=== PATIENT | female | born 1975 | race American Indian/Alaskan Native ===

== ENCOUNTER 2019-04-14 10:01 | Inpatient (IN) | payer MEDICAID ==
[2019-04-08 14:17] LABS: Basophils # (Auto) 0.1 K/mm3 (0.0-0.1); Basophils % (Auto) 1.3 % (0.0-1.8); Eosinophils # (Auto) 0.2 K/mm3 (0.0-0.4); Eosinophils % (Auto) 1.7 % (0.0-4.3); Hematocrit 34.4 % (30.3-42.9); Hemoglobin 11.3 gm/dl (10.1-14.3); Lymphocytes # (Auto) 2.6 K/mm3 (1.2-5.4); Lymphocytes % (Auto) 26.7 % (13.4-35.0); Mean Corpuscular HGB Conc 33 % (30-34); Mean Corpuscular Volume 89 fl (79-97); Monocytes # (Auto) 0.8 K/mm3 (0.0-0.8); Monocytes % (Auto) 8.7 % (0.0-7.3); Platelet Count 317 K/mm3 (140-440); Red Blood Count 3.87 M/mm3 (3.65-5.03); Red Cell Distribution Width 15.8 % (13.2-15.2)
--- NOTE | 2019-04-09 10:39 | Anesthesia Consultation ---
Anesthesia Consult and Med Hx Date of service: 04/09/19 - Airway Anesthetic Teeth Evaluation: Good ROM Head & Neck: Adequate Mental/Hyoid Distance: Adequate Mallampati Class: Class II Intubation Access Assessment: Possibly Difficult - Pulmonary Exam CTA: Yes - Cardiac Exam Cardiac Exam: RRR - Pre-Operative Health Status ASA Pre-Surgery Classification: ASA3 Proposed Anesthetic Plan: General Nerve Block: TAP Block - Pulmonary Hx Smoking: Yes (STARTED AT AGE 18; QUIT 2007) Hx Asthma: Yes (albuterol prn; last use 2 days ago) SOB: No Hx Sleep Apnea: No (SLEEP STUDY NEG) - Cardiovascular System Hx Hypertension: No Hx Heart Attack/AMI: No Hx Percutaneous Transluminal Coronary Angioplasty (PTCA): No Hx Cardia Arrhythmia: No - Central Nervous System Hx Seizures: No CVA: No Hx Psychiatric Problems: Yes - Gastrointestinal Hx Gastroesophageal Reflux Disease: No - Endocrine Hx Renal Disease: No Hx Liver Disease: No Hx Insulin Dependent Diabetes: No Hx Non-Insulin Dependent Diabetes: No Hx Thyroid Disease: No - Hematic Hx Anemia: Yes - Other Systems Hx Alcohol Use: No Hx Obesity: Yes (BMI 56) - Additional Comments Anesthesia Medical History Comments: No prior GA. No FHx anesthetic complications.
[~2019-04-14 10:01] MED LIST: LACTATED RINGERS 1,000 ML IV SCH; NEURONTIN PO NR; PROVENTIL IH NR; VERSED IV NR
--- NOTE | 2019-04-14 10:39 | Anesthesia Day of Surgery ---
Anesthesia Day of Surgery - Day of Surgery Patient Examined: Yes Patient H&P Reviewed: Yes Patient is NPO: Yes
[2019-04-14] MEDS ORDERED: TYLENOL PO ONE (11:39)
--- NOTE | 2019-04-14 12:10 | History and Physical Report ---
History of Present Illness Date of examination: 04/14/19 Date of admission: 04/14/19 10:01 Chief complaint: Prolonged heavy vaginal bleeding History of present illness: Pt is a 43yo BF LMP 03/15/19 presents for surgical evaluation and treatment of uterine fibroids. She complains of prolonged heavy vaginal bleeding. Pelvic u/s showed an enlarged uterus with multiple fibroids. She desires an Abdominal myomectomy. Past History Past Medical History: no pertinent history [employer] History: fibroids Social history: no significant social history, single Medications and Allergies Allergies Allergy/AdvReac Type Severity Reaction Status Date / Time No Known Allergies Allergy Verified 04/07/19 18:21 Home Medications Medication Instructions Recorded Confirmed Last Taken Type Diclofenac 1% [Diclofenac 1% 1 applic TP QID PRN 04/07/19 04/14/19 04/13/19 09:00 History topical gel] Ergocalciferol [Vitamin D2] 1 cap PO QWEEK 04/07/19 04/14/19 04/09/19 09:00 History Levalbuterol Tartrate [Xopenex Hfa] 2 puff IH Q4H PRN 04/07/19 04/14/19 04/13/19 09:00 History Triamcinolone 0.1% [Kenalog 0.1% 1 applic TP TID 04/07/19 04/14/19 04/13/19 09:00 History OINT] oxyCODONE /ACETAMINOPHEN [Percocet 1 tab PO Q6H PRN #30 tablet 04/16/19 Unknown Rx 5/325 mg] traMADol [Ultram 50 MG tab] 50 mg PO Q6HR PRN #30 tablet 04/16/19 Unknown Rx Active Meds: Active Medications Albuterol (Proventil) 2.5 mg IH PREOP NR Stop: 04/14/19 23:59 Celecoxib (Celebrex) 200 mg PO PREOP NR Stop: 04/14/19 23:59 Fentanyl (Sublimaze) 100 mcg IV ONCE PRN PRN Reason: sedation for nerve block Stop: 04/14/19 23:59 Gabapentin (Neurontin) 300 mg PO PREOP NR Stop: 04/14/19 23:59 Last Admin: 04/14/19 11:40 Dose: 300 mg Documented by: Lactated Ringer's (Lactated Ringers) 1,000 mls @ 100 mls/hr IV DIRECT TEDDY Midazolam HCl (Versed) 2 mg IV PREOP NR Stop: 04/14/19 23:59 Review of Systems All systems: negative - Vital Signs Vital signs: Vital Signs Temp Pulse Resp BP Pulse Ox 97.0 F L 72 18 141/83 98 04/08/19 13:52 04/08/19 13:52 04/08/19 13:52 04/08/19 13:52 04/08/19 13:52 Temp Pulse Resp BP Pulse Ox 97.0 F L 72 16 141/83 98 04/08/19 13:52 04/08/19 13:52 04/14/19 11:40 04/08/19 13:52 04/08/19 13:52 - Physical Exam Breasts: Positive: deferred Cardiovascular: Regular rate Lungs: Positive: Clear to auscultation Abdomen: Positive: normal appearance Genitourinary (Female): Positive: normal external genitalia Uterus: Positive: enlarged Extremities: Positive: normal Results Result Diagrams: 04/15/19 07:52 All other labs normal. Ultrasound: report reviewed Assessment and Plan - Patient Problems (1) Uterine fibroid Onset Date: 04/14/19 Current Visit: Yes Status: Resolved Qualifiers: Uterine leiomyoma location: intramural and subserous Qualified Code(s): D25.1 - Intramural leiomyoma of uterus; D25.2 - Subserosal leiomyoma of uterus Plan to address problem: A: Symptomatic uterine fibroids Menorrhagia P: Admit for an Abdominal myomectomy (2) Menorrhagia with irregular cycle Onset Date: 04/14/19 Current Visit: Yes Status: Resolved
[2019-04-14] MEDS: SUBLIMAZE IV PRN ×2 (12:30→13:06)
[2019-04-14] MEDS ORDERED: ANCEF/STERILE WATER 2 GM/20 ML 2 GM/20 ML SYRINGE IV NR (13:00)
[2019-04-14] MEDS ORDERED: MARCAINE-EPI 0.25%-1:200,000 INFILTRATI ONE (13:15)
[2019-04-14] MEDS ORDERED: XYLOCAINE 1% 20 mL ONE (13:18)
[2019-04-14] MEDS ORDERED: ACD-A 500 ML IV ONE (14:28)
[2019-04-14] MEDS ORDERED: METHYLENE BLUE ONE (14:28)
[2019-04-14] MEDS ORDERED: NACL 0.9% 100 ML ONE (14:29)
[2019-04-14] MEDS ORDERED: Vasostrict ONE (14:29)
[2019-04-14] MEDS ORDERED: DIPRIVAN 10 MG/ML IV ONE (14:40)
[2019-04-14] MEDS ORDERED: XYLOCAINE MPF 2% ONE (14:41)
[2019-04-14] MEDS ORDERED: SUBLIMAZE ONE (14:42)
[2019-04-14] MEDS ORDERED: ZEMURON IV ONE (15:20)
[2019-04-14] MEDS ORDERED: DILAUDID ONE ×3 (15:20→16:39)
[2019-04-14] MEDS ORDERED: DECADRON ONE (15:41)
[2019-04-14] MEDS ORDERED: ZOFRAN ONE (15:41)
[2019-04-14] MEDS ORDERED: NARCAN 0.4 MG/1 ML IV PRN (16:04)
[2019-04-14] MEDS ORDERED: MILK OF MAGNESIA PO PRN (16:04)
[2019-04-14] MEDS ORDERED: ZOFRAN IV PRN ×2 (16:04→16:44)
[2019-04-14] MEDS ORDERED: ROBINUL ONE (16:10)
[2019-04-14] MEDS ORDERED: BLOXIVERZ ONE (16:10)
--- NOTE | 2019-04-14 16:29 | Operative Report ---
Operative Report Operative Report: Date of procedure: 04/14/2019 Pre-operative diagnosis: 1. Symptomatic uterine fibroids 2. Menometrorrhagia Post-operative diagnosis: Same with left ovarian cyst Procedure name(s): 1. Abdominal myomectomy 2. Left ovarian cystectomy Surgeon: Eben Thomas MD Debit Agent: ESDRAS Spears Anesthesia: TAWNY block followed by Gen. endotracheal intubation EBL: 60 mL's Findings: A 12 week size myomatous uterus with normal tubes and ovaries bilaterally. A cystic left ovary. Procedure: After the patient was correctly identified, she was prepped and draped in usual sterile fashion and placed in the lithotomy position. First the skin knife used to make a transverse skin incision which is nicked in the midline and extended laterally using the Bovie cautery. The rectus muscles were dissected off the rectus fascia both superiorly and inferiorly, the rectus bellies in the midline and the peritoneum was entered under direct visualization. Exploration of the pelvic organs found the uterus to be enlarged with small fibroids. The fallopian tubes and ovaries normal bilaterally. The left ovary was cystic. Next the bowels packed back, and the anterior serosa was infiltrated using Pitressin solution. An anterior incision was made through which 5 small fibroids were removed and sent to pathology. The endometrial cavity was entered, and thus she will need a section for delivery should she get . After all the fibroids are removed, the myometrium was re-approximated using 2-0 Monocryl suture in 2 layers, the second layer imbricating the first. Copious amounts of irrigation was then performed, and excellent hemostasis was assured. The Tisseel Sealant was sprayed across the serosal layer. The uterus was returned to his normal anatomical position, and the rectus muscles and peritoneum was re-approximated using several sutures of interrupted 0 Vicryl suture. The fascia was re-approximated using 0 Vicryl suture in a running locking fashion. The subcutaneous layer was made hemostatic using Bovie cautery and re-approximated using 2-0 Monocryl suture and the skin edges re-approximated using 4-0 Vicryl suture in a sub-cuticular fashion. The patient tolerated the procedure well and was transferred to recovery room in stable condition.
[2019-04-14] MEDS: DILAUDID IV PRN ×4 (16:38→17:09)
--- NOTE | 2019-04-14 17:30 | Post Anesthesia Evaluation ---
- Post Anesthesia Evaluation Patient Participated: Yes Airway Patent: Yes Stable Respiratory Function: Yes Nausea/Vomiting: No Temp > 96.8F: Yes Pain Manageable: Yes Adequeate Hydration: Yes Anesthesia Complications: No
[2019-04-14] MEDS: TORADOL IV SCH (18:09)
[2019-04-14] MEDS: D5LR 1,000 ML IV SCH (18:20)
[2019-04-14] MEDS: MORPHINE IV PRN (21:00)
[2019-04-14] MEDS: ANCEF/NS 1 GM/50 ML 1 GM/50 ML BAG IV SCH (22:43)
[2019-04-14] MEDS: COLACE PO SCH (22:44)
[2019-04-14] MEDS: PERCOCET 5/325 PO PRN (22:50)
[2019-04-15] MEDS: TORADOL IV SCH ×4 (00:54→16:21)
[2019-04-15] MEDS: D5LR 1,000 ML IV SCH (01:55)
[2019-04-15] MEDS: MORPHINE IV PRN ×4 (02:17→16:21)
[2019-04-15] MEDS: ANCEF/NS 1 GM/50 ML 1 GM/50 ML BAG IV SCH (06:01)
[2019-04-15] MEDS: PERCOCET 5/325 PO PRN ×2 (08:06→19:48)
[2019-04-15 08:25] LABS: Hematocrit 32.3 % (30.3-42.9); Hemoglobin 10.8 gm/dl (10.1-14.3)
--- NOTE | 2019-04-15 09:37 | Progress Note ---
Assessment and Plan - Patient Problems (1) Uterine fibroid Onset Date: 04/14/19 Current Visit: Yes Status: Resolved Qualifiers: Uterine leiomyoma location: intramural and subserous Qualified Code(s): D25.1 - Intramural leiomyoma of uterus; D25.2 - Subserosal leiomyoma of uterus (2) Menorrhagia with irregular cycle Onset Date: 04/14/19 Current Visit: Yes Status: Resolved (3) Status post myomectomy Onset Date: 04/15/19 Current Visit: Yes Status: Resolved Plan to address problem: A: S/P Abdominal myomectomy - POD #1 Doing well Asymptomatic anemia - stable P: Continue RPOC Anticipate discharge in 24-48hrs Subjective - Subjective Date of service: 04/15/19 Principal diagnosis: s/p Myomectomy - POD #1 Interval history: Pt is s/p an Abdominal myomectomy, and feeling well. She is tolerating a liquid diet without nausea or vomiting, ambulating and voiding without difficulty. Patient reports: appetite normal, voiding normally, pain well controlled, flatus, ambulating normally, no dizzy ambulation, no nauseated Objective - Vital Signs Latest vital signs: Vital Signs Temp Pulse Resp BP BP Pulse Ox 04/15/19 08:15 97.4 F L 70 20 131/80 93 04/15/19 04:55 98.1 F 71 20 130/71 97 04/15/19 00:10 98.2 F 69 20 122/72 95 04/14/19 21:35 99 04/14/19 21:26 99 04/14/19 20:50 98.2 F 85 20 123/69 99 04/14/19 17:41 98.1 F 72 18 141/81 98 04/14/19 17:15 72 14 150/84 99 04/14/19 17:00 97.2 F L 75 14 150/81 96 04/14/19 16:45 78 14 150/84 100 04/14/19 16:40 81 16 148/79 100 04/14/19 16:35 88 16 140/77 100 04/14/19 16:28 97.3 F L 91 H 16 139/84 99 04/14/19 13:45 91 H 20 112/64 100 04/14/19 13:43 93 H 23 99/38 99 04/14/19 13:30 95 H 21 112/57 100 04/14/19 13:27 94 H 21 110/68 100 04/14/19 13:25 90 19 118/71 99 04/14/19 13:22 87 20 121/70 100 04/14/19 13:16 91 H 20 101/55 100 04/14/19 13:06 20 04/14/19 12:40 20 04/14/19 12:30 20 04/14/19 11:40 16 04/14/19 11:00 97.8 F 92 H 20 136/82 98 04/14/19 10:25 97.8 F 92 H 20 136/82 98 Intake and Output 04/14/19 04/15/19 04/15/19 22:59 06:59 14:59 Intake Total 250 990.833 120 Output Total 70 300 800 Balance 180 690.833 -680 Intake: IV 250 870.833 ANCEF/NS 1 GM/50 ML 1 gm 50 In 50 ml @ 100 mls/hr IV Q8H TEDDY Rx#:[id number] D5lr 1,000 ml @ 125 mls/ 820.833 hr IV DIRECT TEDDY Rx#: [id number] Oral 120 120 Output: Urine 70 300 800 Indwelling Catheter 300 800 Other: Total, Intake Amount 120 120 Total, Output Amount 300 800 Voiding Method Indwelling Catheter Weight 149.924 kg - Exam Breasts: Present: deferred Abdomen: Present: normal appearance, soft Uterus: Present: normal Extremities: Present: normal Incision: Present: normal, dry, intact - Labs Labs: Laboratory Tests 04/08/19 04/08/19 04/14/19 13:55 13:55 11:05 WBC 9.8 RBC 3.87 Hgb 11.3 Hct 34.4 MCV 89 MCH 29 MCHC 33 RDW 15.8 H Plt Count 317 Lymph % (Auto) 26.7 [place] % (Auto) 8.7 H Eos % (Auto) 1.7 Baso % (Auto) 1.3 Lymph # 2.6 [place] # 0.8 Eos # 0.2 Baso # 0.1 Seg Neutrophils % 61.6 Seg Neutrophils # 6.0 HCG, Qual Negative Blood Type O POSITIVE Antibody Screen Negative 04/15/19 07:52 WBC RBC Hgb 10.8 Hct 32.3 MCV MCH MCHC RDW Plt Count Lymph % (Auto) [place] % (Auto) Eos % (Auto) Baso % (Auto) Lymph # [place] # Eos # Baso # Seg Neutrophils % Seg Neutrophils # HCG, Qual Blood Type Antibody Screen
[2019-04-15] MEDS: PROVENTIL IH SCH ×5 (10:14→21:13)
[2019-04-15] MEDS: COLACE PO SCH ×2 (10:20→23:16)
[2019-04-15] MEDS ORDERED: AMBIEN PO PRN (12:08)
[2019-04-15] MEDS: NORCO 5/325 PO PRN (23:16)
[2019-04-16] MEDS: NORCO 5/325 PO PRN (07:59)
[2019-04-16] MEDS ORDERED: PROVENTIL IH SCH ×2 (08:00)
[2019-04-16] MEDS: COLACE PO SCH (08:01)
[2019-04-16 08:48] VITALS: BP 96/46
--- NOTE | 2019-04-16 09:27 | Progress Note ---
Assessment and Plan - Patient Problems (1) Uterine fibroid Onset Date: 04/14/19 Current Visit: Yes Status: Resolved Qualifiers: Uterine leiomyoma location: intramural and subserous Qualified Code(s): D25.1 - Intramural leiomyoma of uterus; D25.2 - Subserosal leiomyoma of uterus (2) Menorrhagia with irregular cycle Onset Date: 04/14/19 Current Visit: Yes Status: Resolved (3) Status post myomectomy Onset Date: 04/15/19 Current Visit: Yes Status: Resolved Plan to address problem: A: S/P Abdominal myomectomy - POD #2 Doing well Asymptomatic anemia - stable P: May go home today. Subjective - Subjective Date of service: 04/16/19 Principal diagnosis: s/p Myomectomy - POD #2 Interval history: Pt is s/p an Abdominal myomectomy, and feeling well. She is tolerating a reg diet without nausea or vomiting, ambulating and voiding without difficulty. Patient reports: appetite normal, voiding normally, pain well controlled, flatus, ambulating normally, no dizzy ambulation, no bowel movement, no nauseated Objective - Vital Signs Latest vital signs: Vital Signs Temp Pulse Pulse Resp Resp BP BP 04/16/19 07:49 97.7 F 82 20 96/46 04/16/19 04:50 97.8 F 79 20 107/49 04/16/19 00:22 97.8 F 89 20 114/67 04/15/19 22:28 04/15/19 21:34 04/15/19 21:15 78 16 04/15/19 20:45 98.0 F 89 20 110/69 04/15/19 16:06 97.9 F 76 18 131/60 04/15/19 15:16 82 14 04/15/19 15:06 79 16 04/15/19 12:06 97.5 F L 85 20 108/53 04/15/19 10:30 96 H 14 04/15/19 10:28 04/15/19 10:25 94 H 16 Pulse Ox 04/16/19 07:49 97 04/16/19 04:50 95 04/16/19 00:22 93 04/15/19 22:28 99 04/15/19 21:34 100 04/15/19 21:15 04/15/19 20:45 98 04/15/19 16:06 97 04/15/19 15:16 04/15/19 15:06 04/15/19 12:06 95 04/15/19 10:30 04/15/19 10:28 99 04/15/19 10:25 Intake and Output 04/15/19 04/16/19 04/16/19 22:59 06:59 14:59 Intake Total 360 120 Output Total 250 Balance 110 120 Intake: Oral 120 Intake, Free Water 360 Output: Urine 250 Void 250 Other: Total, Intake Amount 120 Total, Output Amount 250 Voiding Method Toilet # Voids Void 1 1 - Exam Abdomen: Present: normal appearance, soft Uterus: Present: normal Incision: Present: normal, dry, intact
--- NOTE | 2019-04-16 10:16 | Discharge Summary ---
Providers - Providers Date of Admission: 04/14/19 10:01 Date of discharge: 04/16/19 Attending physician: PHIL CHEEMA [facility] Reason for admission: other (Symptomatic uterine fibroids; Menorrhagia) Procedure: other (Abdominal myomectomy; Left ovarian cystectomy) Laceration: none Incision: normal, dry, intact Other procedures: none complications: none Discharge diagnosis: other (s/p Abdominal myomectomy) Hospital course: Pt is a 43yo BF LMP 03/15/19 who presented for surgical evaluation and treatment of uterine fibroids. She complained of prolonged heavy vaginal bleeding, and pelvic u/s showed an enlarged uterus with multiple fibroids. She underwent an uncomplicated Abdominal myomectomy, and by POD #2 she was tolerating a reg diet without nausea or vomiting, ambulating and voiding without difficulty. She was therefore discharged to home on POD #2 in stable condition. Condition at discharge: Good Disposition: DC-01 TO HOME OR SELFCARE - Discharge Diagnoses (1) Uterine fibroid Status: Resolved Qualifiers: Uterine leiomyoma location: intramural and subserous Qualified Code(s): D25.1 - Intramural leiomyoma of uterus; D25.2 - Subserosal leiomyoma of uterus (2) Menorrhagia with irregular cycle Status: Resolved (3) Status post myomectomy Status: Resolved Plan - Discharge Medications Prescriptions: oxyCODONE /ACETAMINOPHEN [Percocet 5/325 mg] 1 tab PO Q6H PRN #30 tablet PRN Reason: Pain, Moderate (4-6) traMADol [Ultram 50 MG tab] 50 mg PO Q6HR PRN #30 tablet PRN Reason: Pain - Provider Discharge Summary Activity: routine, no sex for 6 weeks, no heavy lifting 4 weeks, no strenuous exercise Diet: routine Instructions: routine Additional instructions: [] Smoking cessation referral if applicable(refer to patient education folder for contact #) [] Refer to [facility] Booklet Call your doctor immediately for: * Fever > 100.5 * Heavy vaginal bleeding ( >1 pad per hour) * Severe persistent headache * Shortness of breath * Reddened, hot, painful area to leg or breast * Drainage or odor from incision. * Keep incision clean and dry at all times and follow doctor's instructions regarding bathing/showering - Follow up plan Follow up: ADEEL SEPULVEDA MD [Primary Care Provider] - 7 Days PHIL CHEEMA MD [Staff Physician] - 7 Days
== END 2019-04-16 14:39 | disposition home or self-care (01) | DRG 742 ==
LOC: 3A 10:01 → OB 17:19
PROVIDERS: ADMIT Obstetrics & Gynecology; ATTEND Obstetrics & Gynecology
PROC: 0UB90ZZ Excision of Uterus, Open Approach (ICD-10-PCS; principal; 2019-04-14)
PROC: 0UB10ZZ Excision of Left Ovary, Open Approach (ICD-10-PCS; 2019-04-14)
DX: D25.2 Subserosal leiomyoma of uterus (principal); Z68.43 Body mass index [BMI] 50.0-59.9, adult; N92.1 Excessive and frequent menstruation with irregular cycle; D25.1 Intramural leiomyoma of uterus; E66.9 Obesity, unspecified; N83.202 Unspecified ovarian cyst, left side; J45.909 Unspecified asthma, uncomplicated; D64.9 Anemia, unspecified; Z87.891 Personal history of nicotine dependence; Z79.51 Long term (current) use of inhaled steroids
CPT/HCPCS: 36415; 64450; 84703; 85014; 85018; 85025; 86850; 86900; 86901; 88305; 94640; G0378; C1765; C9250; J0690; J1100; J1170; J1885; J2250; J2270; J2405; J2704; J2710; J3010; J7120; J7121; Q9968

== ENCOUNTER 2019-06-08 10:04 | Outpatient (CLI) | payer MEDICAID ==
--- NOTE | 2019-06-11 07:14 | Pulmonary Function Test ---
SPIROMETRY REPORT PROCEDURE: Spirometry. RESULTS: Forced vital capacity is 2.7 L or 92% predicted. Forced expiratory volume in 1, second is 2.16 L or 89% of predicted. FEV1/FVC ratio is 79. INTERPRETATION: Normal spirometry. JOB# [id number] SONIA/NTS
== END 2019-06-08 10:05 | disposition home or self-care (01) ==
LOC: PF 10:04
PROVIDERS: ATTEND Surgery
DX: E66.2 Morbid (severe) obesity with alveolar hypoventilation (principal); J45.909 Unspecified asthma, uncomplicated
CPT/HCPCS: 94010

== ENCOUNTER 2019-08-10 15:24 | Emergency (ER) | payer MEDICAID ==
--- NOTE | 2019-08-10 17:00 | Event Note ---
ED Screening Note Date of service: 08/10/19 Time: 16:56 ED Screening Note: This is a 43 y.o. F. that presents to the ER with vaginal bleeding and 8/9 weeks . LMP 06/10/2019, A8 (2 miscarriages, 6 abortions) Dr. Thomas office sent patient here for follow up. She reports noticing clots in the toilet today and heavy bleeding. This initial assessment/diagnostic orders/clinical plan/treatment(s) is/are subject to change based on patients health status, clinical progression and re- assessment by fellow clinical providers in the ED. Further treatment and workup at subsequent clinical providers discretion. Patient/guardian urged not to elope from the ED as their condition may be serious if not clinically assessed and managed. Initial orders include: Labs and OB US
[2019-08-10 17:48] LABS: Basophils # (Auto) 0.2 K/mm3 (0.0-0.1); Basophils % (Auto) 1.2 % (0.0-1.8); Eosinophils # (Auto) 0.1 K/mm3 (0.0-0.4); Eosinophils % (Auto) 1.1 % (0.0-4.3); Hematocrit 35.4 % (30.3-42.9); Hemoglobin 11.4 gm/dl (10.1-14.3); Mean Corpuscular HGB Conc 32 % (30-34); Mean Corpuscular Volume 89 fl (79-97); Monocytes # (Auto) 1.1 K/mm3 (0.0-0.8); Monocytes % (Auto) 9.1 % (0.0-7.3); Platelet Count 350 K/mm3 (140-440); Red Blood Count 3.96 M/mm3 (3.65-5.03); Red Cell Distribution Width 17.6 % (13.2-15.2)
[2019-08-10 18:01] LABS: Bilirubin,Urine NEG (Negative); Blood,Urine SM (Negative); Color,Urine Yellow (Yellow); Mucus,Urine 1+ /HPF; Protein,Urine <15 mg/dL mg/dL (Negative)
--- NOTE | 2019-08-10 19:33 | Ultrasound Report ---
US OB <= 14 weeks fetus, US OB transvaginal INDICATION / CLINICAL INFORMATION: preg, bleeding. COMPARISON: None available. FINDINGS: Transabdominal and transvaginal imaging were performed. Intrauterine gestational sac measures 1.3 cm, corresponding to a gestational age of 6 weeks 1 day. Ho wever, there is no evidence of pole or yolk sac. Left ovary is normal. Right ovary contains a 2.3 cm cyst. No free fluid. IMPRESSION: 1. Intrauterine gestational sac but no evidence of intrauterine or extrauterine . Signer Name: Hitesh Perkins MD Signed: 08/10/2019 7:28 PM Workstation Name: [id number]
--- NOTE | 2019-08-10 20:47 | Emergency Department Report ---
ED Female HPI - General Chief complaint: Vaginal Bleeding Stated complaint: /HEAVY BLEEDING Time Seen by Provider: 08/10/19 16:56 Source: patient Mode of arrival: Ambulatory Limitations: No Limitations - History of Present Illness Initial comments: Patient is a A [id number] Afro-Swiss female who is approximately 6 weeks gestation and who presented to the ED today with acute onset persistent vaginal bleeding which initially was light but in the last 2 days has had some clots and associated worsened. Patient denies abdominal pain, nausea, vomiting, dizziness, headache, chest pain, shortness of breath, dysuria, urinary frequency and urgency, change in vision, fever and chills, low back pain or diarrhea. MD Complaint: vaginal bleeding -: Gradual, week(s) (2) Location: other (vaginal) Radiation: non-radiating Severity: moderate Severity scale (0 -10): 2 Quality: dull Consistency: intermittent Improves with: none Worsens with: none Are you Now?: Yes (6 weeks) Associated Symptoms: denies other symptoms, vaginal bleeding. denies: vaginal discharge, abdominal pain, nausea/vomiting, fever/chills, headaches, loss of appetite, dysuria, seizure, shortness of breath, weakness - Related Data Sexually active: Yes : 16 Para: 7 A: 9 Home Medications Medication Instructions Recorded Confirmed Last Taken Diclofenac 1% [Diclofenac 1% 1 applic TP QID PRN 04/07/19 08/10/19 08/06/19 topical gel] Ergocalciferol [Vitamin D2] 1 cap PO QWEEK 04/07/19 08/10/19 08/09/19 Levalbuterol Tartrate [Xopenex Hfa] 2 puff IH Q4H PRN 04/07/19 08/10/19 08/09/19 Triamcinolone 0.1% [Kenalog 0.1% 1 applic TP TID 04/07/19 08/10/19 08/06/19 OINT] Allergies Allergy/AdvReac Type Severity Reaction Status Date / Time No Known Allergies Allergy Verified 04/07/19 18:21 ED Review of Systems ROS: Stated complaint: /HEAVY BLEEDING Other details as noted in HPI Constitutional: denies: chills, fever Eyes: denies: eye pain, eye discharge, vision change ENT: denies: ear pain, throat pain Respiratory: denies: cough, shortness of breath, wheezing Cardiovascular: denies: chest pain, palpitations Endocrine: no symptoms reported Gastrointestinal: denies: abdominal pain, nausea, diarrhea Genitourinary: other (vaginal bleeding). denies: urgency, dysuria, discharge Musculoskeletal: denies: back pain, joint swelling, arthralgia Skin: denies: rash, lesions Neurological: denies: headache, weakness, paresthesias Psychiatric: denies: anxiety, depression Hematological/Lymphatic: denies: easy bleeding, easy bruising ED Past Medical Hx - Past Medical History Previous Medical History?: Yes Hx Hypertension: No Hx Heart Attack/AMI: No Hx Liver Disease: No Hx Renal Disease: No Hx Arthritis: Yes (KNEES) Hx Seizures: No Hx Asthma: Yes (albuterol prn; last use 2 days ago) Hx HIV: No - Surgical History Past Surgical History?: No - Social History Smoking Status: Never Smoker Substance Use Type: None - Medications Home Medications: Home Medications Medication Instructions Recorded Confirmed Last Taken Type Diclofenac 1% [Diclofenac 1% 1 applic TP QID PRN 04/07/19 08/10/19 08/06/19 History topical gel] Ergocalciferol [Vitamin D2] 1 cap PO QWEEK 04/07/19 08/10/19 08/09/19 History Levalbuterol Tartrate [Xopenex Hfa] 2 puff IH Q4H PRN 04/07/19 08/10/19 08/09/19 History Triamcinolone 0.1% [Kenalog 0.1% 1 applic TP TID 04/07/19 08/10/19 08/06/19 History OINT] ED Physical Exam - General Limitations: No Limitations General appearance: alert, in no apparent distress - Head Head exam: Present: atraumatic, normocephalic, normal inspection - Eye Eye exam: Present: normal appearance, PERRL, EOMI Pupils: Present: normal accommodation - ENT ENT exam: Present: normal exam, normal orophraynx, mucous membranes moist, TM's normal bilaterally, normal external ear exam - Neck Neck exam: Present: normal inspection, full ROM. Absent: tenderness - Respiratory Respiratory exam: Present: normal lung sounds bilaterally. Absent: respiratory distress, wheezes, rales, rhonchi, chest wall tenderness, decreased breath sounds, prolonged expiratory - Cardiovascular Cardiovascular Exam: Present: regular rate, normal rhythm, normal heart sounds. Absent: systolic murmur, diastolic murmur, rubs, gallop - GI/Abdominal GI/Abdominal exam: Present: soft, normal bowel sounds. Absent: tenderness, guarding, rebound, hyperactive bowel sounds, hypoactive bowel sounds - Bi-manual exam: Present: other (pelvic exam deferred, patient preference) - Extremities Exam Extremities exam: Present: normal inspection, full ROM, normal capillary refill - Back Exam Back exam: Present: normal inspection, full ROM. Absent: muscle spasm, paraspinal tenderness - Neurological Exam Neurological exam: Present: alert, oriented X3, CN II-XII intact, normal gait, reflexes normal - Psychiatric Psychiatric exam: Present: normal affect, normal mood - Skin Skin exam: Present: warm, dry, intact, normal color. Absent: rash ED Course Vital Signs 08/10/19 16:58 Temperature 98.1 F Pulse Rate 84 Respiratory 18 Rate Blood Pressure 150/81 O2 Sat by Pulse 100 Oximetry - Reevaluation(s) Reevaluation #1: 08/10/19 20:47 This is a 43-year-old [id number] -Swiss female who is approximately 6 weeks gestation who presented to the ED with acute onset persistent vaginal bleeding which initially was light but in the last 2 days has gotten worse with multiple blood clots. In the ED, patient is alert and oriented 3 and is not in distress. Lab test results were reviewed and shows hCG Quant of 2144, acute leukocytosis of 12,400. The rest of the lab test results are nonactionable. The transvaginal ultrasound shows intrauterine gestational sac measures 1.3 cm, corresponding to a gestational age of 6 weeks 1 day. However, there is no evidence of pole or yolk sac. Patient was advised to maintain a complete pelvic rest and to follow-up with the CLAIM EXAMINER physician in 2- 3 days for reevaluation. Patient was advised to return to the ED immediately if symptoms get worse. ED Medical Decision Making - Lab Data Result diagrams: 08/10/19 17:18 - Radiology Data Radiology results: report reviewed, image reviewed Findings [facility] [address] [place] [address] Ultrasound Report Signed Patient: SAMM BRANNON MR#: [id number] : 1975 Acct:[id number] Age/Sex: 43 / F ADM Date: 08/10/19 Loc: ED Attending Dr: Ordering Physician: LARRY GRAFF Date of Service: 08/10/19 Procedure(s): US OB transvaginal Accession Number(s): [id number] cc: LARRY GRAFF US OB <= 14 weeks fetus, US OB transvaginal INDICATION / CLINICAL INFORMATION: preg, bleeding. COMPARISON: None available. FINDINGS: Transabdominal and transvaginal imaging were performed. Intrauterine gestational sac measures 1.3 cm, corresponding to a gestational age of 6 weeks 1 day. However, there is no evidence of pole or yolk sac. Left ovary is normal. Right ovary contains a 2.3 cm cyst. No free fluid. IMPRESSION: 1. Intrauterine gestational sac but no evidence of intrauterine or extrauterine . Signer Name: Hitesh Perkins MD Signed: 08/10/2019 7:28 PM Workstation Name: [id number] Transcribed By: TM Dictated By: Hitesh Perkins MD Electronically Authenticated By: Hitesh Perkins MD Signed Date/Time: 08/10/191927 DD/ 24 TD/TT: - Medical Decision Making This is a 43-year-old [id number] -Swiss female who is approximately 6 weeks gestation who presented to the ED with acute onset persistent vaginal bleeding which initially was light but in the last 2 days has gotten worse with multiple blood clots. In the ED, patient is alert and oriented 3 and is not in distress. Lab test results were reviewed and shows hCG Quant of 2144, acute leukocytosis of 12,400. The rest of the lab test results are nonactionable. T he transvaginal ultrasound shows intrauterine gestational sac measures 1.3 cm, corresponding to a gestational age of 6 weeks 1 day. However, there is no evidence of pole or yolk sac. Patient was advised to maintain a complete pelvic rest and to follow-up with the CLAIM EXAMINER physician in 2- 3 days for reevaluation. Patient was advised to return to the ED immediately if symptoms get worse. - Differential Diagnosis Threatened miscarriage; Vaginal bleeding in ; Acute UTI Critical care attestation.: If time is entered above; I have spent that time in minutes in the direct care of this critically ill patient, excluding procedure time. ED Disposition Clinical Impression: Threatened miscarriage in early Disposition: TO HOME OR SELFCARE Is pt being admited?: No Does the pt Need Aspirin: No Condition: Stable Instructions: Threatened Miscarriage (ED) Additional Instructions: Please maintain a complete pelvic rest, and follow-up with the CLAIM EXAMINER physician in 2-3 days for reevaluation. Return to the ED immediately if symptoms get worse. Referrals: PHIL CHEEMA MD [Primary Care Provider] - 3-5 Days Time of Disposition: 20:52 Print Language: LAO
[2019-08-10 22:37] VITALS: BP 104/54
== END 2019-08-10 22:37 | disposition home or self-care (01) ==
LOC: ED 15:24
DX: O20.0 Threatened abortion (principal); M19.90 Unspecified osteoarthritis, unspecified site; Z79.899 Other long term (current) drug therapy
CPT/HCPCS: 36415; 76801; 76817; 81001; 84702; 84703; 85025; 86900; 86901

== ENCOUNTER 2019-08-24 05:49 | Day surgery (SDC) | payer MEDICAID ==
[~2019-08-24 05:49] MED LIST changes: -NEURONTIN PO NR; -PROVENTIL IH NR; -VERSED IV NR
[2019-08-24] MEDS ORDERED: MIDAZOLAM 2 MG/2 ML INJ IV NR ×2 (06:00→08:00)
[2019-08-24] MEDS ORDERED: PROPOFOL 200 MG/20 ML VIAL IV ONE (07:29)
[2019-08-24] MEDS ORDERED: LIDOCAINE MPF (2%) 20 MG/1 ML VIAL 5 ML ONE (07:29)
[2019-08-24] MEDS ORDERED: PHENYLEPHRINE/NS 1,000 MCG/10 ML SYRINGE (OR USE) IV ONE (07:29)
[2019-08-24] MEDS ORDERED: GLYCOPYRROLATE 0.4 MG/2 ML INJ ONE (07:29)
[2019-08-24] MEDS ORDERED: dexAMETHasone 20 MG/5 ML VIAL ONE (07:29)
[2019-08-24] MEDS ORDERED: ONDANSETRON 4 MG/2 ML INJ ONE (07:29)
[2019-08-24] MEDS ORDERED: fentaNYL 100 MCG/2 ML INJ ONE (07:29)
[2019-08-24] MEDS ORDERED: SILVER NITRATE APPLICATOR 1 EA TP ONE (07:30)
--- NOTE | 2019-08-24 07:30 | Anesthesia Day of Surgery ---
Anesthesia Day of Surgery - Day of Surgery Patient Examined: Yes Patient H&P Reviewed: Yes Patient is NPO: Yes
--- NOTE | 2019-08-24 07:30 | Anesthesia Consultation ---
Anesthesia Consult and Med Hx Date of service: 08/24/19 - Airway Anesthetic Teeth Evaluation: Good ROM Head & Neck: Adequate Mental/Hyoid Distance: Adequate Mallampati Class: Class II Intubation Access Assessment: Probably Good - Pre-Operative Health Status ASA Pre-Surgery Classification: ASA3 Proposed Anesthetic Plan: General - Pulmonary Hx Smoking: Yes (smoked for 15 years, quit 08') Hx Asthma: Yes (albuterol prn; last use this AM) Hx Sleep Apnea: No (SLEEP STUDY NEG) - Cardiovascular System Hx Cardia Arrhythmia: No - Central Nervous System Hx Psychiatric Problems: Yes - Gastrointestinal Hx Gastroesophageal Reflux Disease: No - Endocrine Hx Insulin Dependent Diabetes: No Hx Non-Insulin Dependent Diabetes: No Hx Thyroid Disease: No - Other Systems Hx Obesity: Yes (BMI 58.3)
[2019-08-24] MEDS ORDERED: METHYLERGONOVINE MALEATE 0.2 MG/ML VIAL IM ONE (07:31)
[2019-08-24] MEDS ORDERED: FAMOTIDINE 20 MG/2 ML INJ IV NR (08:00)
--- NOTE | 2019-08-24 08:41 | Short Stay Summary ---
Short Stay Documentation Date of service: 08/24/19 Narrative H&P: Pt is a 43yo BF LMP 06/10/19 presents for surgical evaluation and treatment of an Incomplete . She had a Blighted ovum and passed tissue last week, but continued bleeding, and pelvic u/s showed retained POC. She now presents for a D&C. - History Principal diagnosis: Blighted ovum H&P: obtained from office Past Medical History: No medical history Past Surgical History: Other (myomectomy) Social history: no significant social history, single - Allergies and Medications Current Medications: Allergies No Known Allergies Allergy (Verified 08/20/19 16:43) Home Medications Medication Instructions Recorded Confirmed Last Taken Type Albuterol Sulfate [Proventil Hfa] 2 puff IH Q6H PRN 08/20/19 08/20/19 08/23/19 13:00 History Ascorbic Acid [Vitamin C] 1,000 mg PO DAILY 08/20/19 08/20/19 08/23/19 13:00 History Cholecalciferol (Vitamin D3) 50,000 unit PO QWEEK 08/20/19 08/20/19 08/23/19 13:00 History [Vitamin D3 50,000UNIT CAP] Active Medications Famotidine (Pepcid) 20 mg IV PREOP NR Stop: 08/24/19 16:00 Fentanyl (Sublimaze) 50 mcg IV Q5MIN PRN PRN Reason: Pain , Severe (7-10) Stop: 08/24/19 17:00 Lactated Ringer's (Lactated Ringers) 1,000 mls @ 100 mls/hr IV DIRECT TEDDY Midazolam HCl (Versed) 2 mg IV PREOP NR Stop: 08/24/19 23:59 - Physical exam General appearance: no acute distress Integumentary: no rash HEENT: Atraumatic Lungs: Clear to auscultation Breasts: deferred Heart: Regular rate Gastrointestinal: normal Female Genitourinary: deferred Rectal Exam: deferred Extremities: no ischemia, No edema Neurological: Normal gait, Normal speech - Brief post op/procedure progress note Date of procedure: 08/24/19 Pre-op diagnosis: 1. Blighted ovum 2. Incomplete Post-op diagnosis: same Procedure: D&C Anesthesia: MAC Findings: A 10-12 weeks size uterus with scant amounts of POC Surgeon: PHIL CHEEMA Estimated blood loss: 50-100ml Pathology: list (POC) Specimen disposition: to lab Condition: stable - Hospital course Hospital course: Unremarkable. - Disposition Condition at discharge: Good Disposition: TO HOME OR SELFCARE - Discharge Diagnoses (1) Blighted ovum Status: Resolved (2) Incomplete Status: Resolved Short Stay Discharge Plan Activity: no restrictions Diet: regular Follow up with: DR LESTER [Other] - 7 Days PHIL CHEEMA MD [Staff Physician] - 14 Days Prescriptions: Methylergonovine [Methergine] 0.2 mg PO Q8HR #6 tablet Ibuprofen [Motrin] 800 mg PO Q8HR PRN #30 tablet PRN Reason: Pain, Mild (1-3) DOXYCYCLINE Hyclate [Vibramycin] 100 mg PO Q12HR #14 capsule
[2019-08-24] MEDS ORDERED: ALBUTEROL 2.5 MG/3 ML NEBU IH ONE ×2 (09:00→09:53)
[2019-08-24] MEDS ORDERED: ceFAZolin/Water 2 GM/20 ML 2 GM/20 ML SYRINGE IV NR (09:00)
[2019-08-24] MEDS ORDERED: MIDAZOLAM 2 MG/2 ML INJ ONE (09:03)
[2019-08-24] MEDS ORDERED: SUCCINYLCHOLINE CHLORIDE 200 MG/10 ML INJ MDV ONE (09:19)
--- NOTE | 2019-08-24 09:36 | Operative Report ---
Operative Report Operative Report: Operative Report: PREOPERATIVE DIAGNOSIS: 1. Blighted ovum 2. Incomplete POSTOPERATIVE DIAGNOSIS: Same OPERATIVE PROCEDURE: 1. Dilatation and curettage. SURGEON: Eben Thomas MD ANESTHESIA: Gen. MAC ANESTHESIOLOGIST: Dr. Lindo ESTIMATED BLOOD LOSS: 50 mL's FINDINGS: A 10-12 week size uterus with scant amounts of blood clots and products of conception. COMPLICATIONS: None COUNTS: Correct x3. PROCEDURE: After the patient was correctly identified as the patient, and after general anesthesia was administered, the patient was prepped and draped in the usual sterile fashion and placed in dorsal lithotomy position. First, the bladder was emptied using a straight catheter. Next, a speculum was placed in the vaginal vault and the anterior lip of the cervix was grasped using a single- tooth tenaculum. The cervix was sequentially dilated. The uterus was sounded to 10 cm, and a 10mm vacurrette was used to suction blood and products of conception from the endometrial cavity that were sent to pathology. After satisfactory suctioning was performed, the procedure was considered complete. All instruments were removed from the vagina. The patient tolerated the procedure well and was transferred to the recovery room in stable condition.
[2019-08-24] MEDS: fentaNYL 100 MCG/2 ML INJ IV PRN ×2 (10:00→10:25)
[2019-08-24] MEDS ORDERED: HYDROcodone/ACETAMINOPHEN 5-325 MG TAB PO ONE (11:30)
[2019-08-24] MEDS ORDERED: HYDROcodone/ACETAMINOPHEN 5-325 MG TAB ONE (11:32)
[2019-08-24 12:00] VITALS: BP 133/73
--- NOTE | 2019-08-24 13:34 | Post Anesthesia Evaluation ---
- Post Anesthesia Evaluation Patient Participated: Yes Airway Patent: Yes Stable Respiratory Function: Yes Nausea/Vomiting: No Temp > 96.8F: Yes Pain Manageable: Yes Adequeate Hydration: Yes Anesthesia Complications: No Other Comments: Complained of SOB and chest pain in PACU. VS normal, no changes noted on EKG monitoring, wheezing noted on exam. Symptoms resolved with albuterol nebulizer. EKG NSR, no ischemic changes. Stable with VS at preop baseline at time of d/c.
== END 2019-08-24 12:20 | disposition home or self-care (01) ==
LOC: OR 05:49
PROVIDERS: ATTEND Obstetrics & Gynecology
DX: O03.4 Incomplete spontaneous abortion without complication (principal); O02.0 Blighted ovum and nonhydatidiform mole; J45.909 Unspecified asthma, uncomplicated; M19.90 Unspecified osteoarthritis, unspecified site; F32.9 Major depressive disorder, single episode, unspecified; F41.9 Anxiety disorder, unspecified; Z79.899 Other long term (current) drug therapy; Z98.890 Other specified postprocedural states; Z80.8 Family history of malignant neoplasm of other organs or systems; Z80.3 Family history of malignant neoplasm of breast
CPT/HCPCS: 59812; 86850; 86900; 86901; 88305; 93005; 93010; J0330; J0690; J1100; J2250; J2370; J2405; J2704; J3010; J7120; J2210

== ENCOUNTER 2019-08-25 18:46 | Observation (INO) | payer MEDICAID ==
--- NOTE | 2019-08-25 19:48 | Emergency Department Report ---
Blank Doc - Documentation Documentation: 43-year-old female that presents with SOB, chest tightness, and body aches. S tated has sore throat and began after taking medication. Exam: no rash. no angioedema. no SOB. Vital signs stable. Uvula midline. This initial assessment/diagnostic orders/clinical plan/treatment(s) is/are subject to change based on patient's health status, clinical progression and re- assessment by fellow clinical providers in the ED. Further treatment and workup at subsequent clinical providers discretion. Patient/guardians urged not to elope from the ED as their condition may be serious if not clinically assessed and managed. Initial orders include: 1- Patient sent to MAIN ED for further evaluation and treatment 2- UA 3- labs 4- EKG 5- CXR
[2019-08-25] MEDS ORDERED: SODIUM CHLORIDE 0.9% 1000 ML 1,000 ML IV ONE (20:33)
[2019-08-25] MEDS ORDERED: ONDANSETRON 4 MG/2 ML INJ IV ONE (20:33)
[2019-08-25] MEDS ORDERED: MORPHINE 4 MG/1 ML INJ IV ONE (20:33)
[2019-08-25 22:56] LABS: Basophils # (Auto) 0.1 K/mm3 (0.0-0.1); Basophils % (Auto) 0.5 % (0.0-1.8); Eosinophils # (Auto) 0.1 K/mm3 (0.0-0.4); Hematocrit 33.3 % (30.3-42.9); Hemoglobin 10.7 gm/dl (10.1-14.3); Lymphocytes # (Auto) 4.1 K/mm3 (1.2-5.4); Lymphocytes % (Auto) 35.1 % (13.4-35.0); Mean Corpuscular HGB Conc 32 % (30-34); Mean Corpuscular Volume 89 fl (79-97); Monocytes # (Auto) 1.2 K/mm3 (0.0-0.8); Monocytes % (Auto) 10.6 % (0.0-7.3); Platelet Count 313 K/mm3 (140-440); Red Blood Count 3.75 M/mm3 (3.65-5.03); Red Cell Distribution Width 17.2 % (13.2-15.2)
--- NOTE | 2019-08-25 22:56 | Emergency Department Report ---
<RICK JEFF - Last Filed: 08/26/19 00:01> ED General Adult HPI - General Chief complaint: Allergic Reaction Stated complaint: ALLERGIC REACTION Time Seen by Provider: 08/25/19 19:44 Source: patient Mode of arrival: Wheelchair Limitations: Physical Limitation - History of Present Illness Initial comments: Patient presents to the emergency department one day status post a D&C with general anesthesia. The patient complains of a sore throat and neck soreness 1 day. Patient also complains of diffuse body pain and inability to raise her arms or walk properly. Patient states the latter symptoms started after taking Methergine last night. The patient denies shortness of breath but does complain of some abdominal and chest pain. -: Sudden Severity scale (0 -10): 2 Improves with: none Worsens with: none Associated Symptoms: denies other symptoms Treatments Prior to Arrival: none - Related Data Home Medications Medication Instructions Recorded Confirmed Last Taken Albuterol Sulfate [Proventil Hfa] 2 puff IH Q6H PRN 08/20/19 08/20/19 08/23/19 13:00 Ascorbic Acid [Vitamin C] 1,000 mg PO DAILY 08/20/19 08/20/19 08/23/19 13:00 Cholecalciferol (Vitamin D3) 50,000 unit PO QWEEK 08/20/19 08/20/19 08/23/19 13:00 [Vitamin D3 50,000UNIT CAP] Previous Rx's Medication Instructions Recorded Last Taken Type DOXYCYCLINE Hyclate [Vibramycin] 100 mg PO Q12HR #14 capsule 08/24/19 Unknown Rx Ibuprofen [Motrin] 800 mg PO Q8HR PRN #30 tablet 08/24/19 Unknown Rx Methylergonovine [Methergine] 0.2 mg PO Q8HR #6 tablet 08/24/19 Unknown Rx Allergies Allergy/AdvReac Type Severity Reaction Status Date / Time No Known Allergies Allergy Verified 08/20/19 16:43 ED Review of Systems Comment: All other systems reviewed and negative Constitutional: denies: chills, fever Eyes: denies: eye pain, eye discharge, vision change ENT: denies: ear pain, throat pain Respiratory: denies: cough, shortness of breath, wheezing Cardiovascular: denies: chest pain, palpitations Endocrine: no symptoms reported Gastrointestinal: denies: abdominal pain, nausea, diarrhea Genitourinary: denies: urgency, dysuria, discharge Musculoskeletal: denies: back pain, joint swelling, arthralgia Skin: denies: rash, lesions Neurological: denies: headache, weakness, paresthesias Psychiatric: denies: anxiety, depression Hematological/Lymphatic: denies: easy bleeding, easy bruising ED Past Medical Hx - Past Medical History Hx Arthritis: Yes (KNEES) Hx Asthma: Yes (albuterol prn; last use this AM) - Surgical History Past Surgical History?: Yes Additional Surgical History: D&C, Myeomectomy - Social History Smoking Status: Never Smoker Substance Use Type: None - Medications Home Medications: Home Medications Medication Instructions Recorded Confirmed Last Taken Type Albuterol Sulfate [Proventil Hfa] 2 puff IH Q6H PRN 08/20/19 08/20/19 08/23/19 13:00 History Ascorbic Acid [Vitamin C] 1,000 mg PO DAILY 08/20/19 08/20/19 08/23/19 13:00 History Cholecalciferol (Vitamin D3) 50,000 unit PO QWEEK 08/20/19 08/20/19 08/23/19 13:00 History [Vitamin D3 50,000UNIT CAP] DOXYCYCLINE Hyclate [Vibramycin] 100 mg PO Q12HR #14 capsule 08/24/19 Unknown Rx Ibuprofen [Motrin] 800 mg PO Q8HR PRN #30 tablet 08/24/19 Unknown Rx Methylergonovine [Methergine] 0.2 mg PO Q8HR #6 tablet 08/24/19 Unknown Rx ED Physical Exam - General Limitations: Physical Limitation General appearance: alert, in no apparent distress - Head Head exam: Present: atraumatic, normocephalic - Eye Eye exam: Present: normal appearance, PERRL, EOMI - ENT ENT exam: Present: mucous membranes moist - Neck Neck exam: Present: normal inspection - Respiratory Respiratory exam: Present: normal lung sounds bilaterally. Absent: respiratory distress - Cardiovascular Cardiovascular Exam: Present: regular rate, normal rhythm. Absent: systolic murmur, diastolic murmur, rubs, gallop - GI/Abdominal GI/Abdominal exam: Present: soft, normal bowel sounds - Extremities Exam Extremities exam: Present: normal inspection - Back Exam Back exam: Present: normal inspection - Neurological Exam Neurological exam: Present: alert, oriented X3 - Psychiatric Psychiatric exam: Present: normal affect, normal mood - Skin Skin exam: Present: warm, dry, intact, normal color. Absent: rash ED Medical Decision Making - Lab Data Result diagrams: 08/25/19 22:44 08/25/19 22:44 ED Disposition Clinical Impression: Unable to ambulate Disposition: DC-09 OP ADMIT IP TO THIS HOSP Condition: Fair Referrals: PRIMARY CARE, [Primary Care Provider] - 3-5 Days <LOCO [facility] - Last Filed: 08/26/19 04:58> ED Review of Systems ROS: Stated complaint: ALLERGIC REACTION Other details as noted in HPI ED Course Vital Signs 08/25/19 19:42 Temperature 98.8 F Pulse Rate 78 Respiratory 20 Rate Blood Pressure 135/89 O2 Sat by Pulse 100 Oximetry ED Medical Decision Making - Lab Data Result diagrams: 08/25/19 22:44 08/25/19 22:44 Critical care attestation.: If time is entered above; I have spent that time in minutes in the direct care of this critically ill patient, excluding procedure time. ED Disposition Is pt being admited?: Yes Does the pt Need Aspirin: No Time of Disposition: 04:58 (hospitalist paged (Dr Sierra))
[2019-08-25 23:07] LABS: INR 0.98 (0.87-1.13)
[2019-08-25 23:14] LABS: Alanine Aminotransferase 19 units/L (7-56); Albumin 3.1 g/dL (3.9-5); BUN/Creatinine Ratio 22; Blood Urea Nitrogen 13 mg/dL (7-17); Calcium 8.7 mg/dL (8.4-10.2); Hemolysis Index 4
--- NOTE | 2019-08-25 23:18 | XRay Report ---
CHEST 1 VIEW 08/25/2019 10:27 PM INDICATION / CLINICAL INFORMATION: Chest pain. D and C performed yesterday. COMPARISON: None available. FINDINGS: SUPPORT DEVICES: None. HEART / MEDIASTINUM: No significant abnormality. LUNGS / PLEURA: No significant pulmonary or pleural abnormality. No pneumothorax. ADDITIONAL FINDINGS: No significant additional findings. IMPRESSION: No acute abnormality of the chest. Signer Name: Aravind Maxwell MD Signed: 08/25/2019 11:14 PM Workstation Name: [id number]
[2019-08-25 23:27] LABS: Partial Thromboplastin Time 25.7 Sec. (24.2-36.6)
[2019-08-26] MEDS ORDERED: fentaNYL 100 MCG/2 ML INJ IV ONE (01:53)
--- NOTE | 2019-08-26 04:17 | Cat Scan Report ---
NECK CT 08/26/2019 HISTORY: Generalized weakness FINDINGS: Contrast enhanced CT images of the soft tissues of the neck were obtained. Images are evalu ated in the axial, coronal, and sagittal planes. There is no neck CT correlate for generalized weakness. There is no evidence of abnormal mass, fluid collection, or inflammation. There is normal appearance to the parotid and submandibular glands.. Thyroid gland is unremarkable. There is no evidence of airway occlusion. There is no evidence of abnormal cervical adenopathy. IMPRESSION: No acute abnormality. All CT scans at this location are performed using dose reduction to ALARA by means of automated expos ure control. Signer Name: Jimmie Miner MD Signed: 08/26/2019 4:12 AM Workstation Name: [id number]
--- NOTE | 2019-08-26 04:47 | Cat Scan Report ---
CT CHEST, ABDOMEN, AND PELVIS WITH CONTRAST INDICATION: Chest pain, abdominal pain, shortness of breath CONTRAST: 100 cc Omnipaque 300 IV COMPARISON: None available. All CT scans at this location are performed using CT dose reduction for ALARA by means of automated e xposure control. NOTE: Resolution is decreased and artifact is introduced by the patient's size. FINDINGS: No significant focal bony lesion is seen. Significant axillary or chest wall abnormalities are seen. No hilar masses are noted. In the upper anterior mediastinum a rounded soft tissue density is seen measuring 16 mm which probably is a mildly prominent node. No other mediastinal toi promine nce is seen. No pleural effusions are noted. Pulmonary nodules or masses are seen. Only mild bibasila r atelectatic changes are noted. No areas of consolidation are seen. No pneumothorax or pneumomediast inum are noted. Broadbase small fatty umbilical hernia is seen. Acute abnormalities are seen. No other significant ab dominal wall herniations are noted. Appendix appears within normal limits. No urinary obstructive yosvany nges are seen. Gallbladder and bile ducts appear within normal limits. A 3.3 cm left adrenal hypodens e mass is seen. Internal density is 18 Hounsfield units which is indeterminate. Right adrenal gland a ppears within normal limits. No other masses are seen. No focal inflammatory changes are noted. No fr ee fluid is seen. No lymphadenopathy is noted. IMPRESSION: 1. No significant acute abnormalities are seen 2. Mildly prominent and rather unusual probable node is seen in the upper anterior mediastinum withou t other evidence of adenopathy on the study. Follow-up is suggested. 3. Indeterminate moderate size left adrenal mass. Recommend at least follow-up. If patient cannot hav e MR that may be useful though patient's size making limits the study. If this is a problem, multipha se CT follow-up may be useful to determine washout characteristics and precontrast density. Signer Name: Osbaldo Red MD Signed: 08/26/2019 4:42 AM Workstation Name: [id number]
[2019-08-26] MEDS ORDERED: ONDANSETRON 4 MG/2 ML INJ IV PRN (06:17)
[2019-08-26] MEDS ORDERED: ACETAMINOPHEN 325 MG TAB PO PRN (06:27)
[2019-08-26] MEDS ORDERED: ALBUTEROL 8.5 GM INHALATION IH PRN (06:28)
[2019-08-26] MEDS ORDERED: ALBUTEROL 2.5 MG/3 ML NEBU IH PRN (06:33)
[2019-08-26] MEDS: MORPHINE 2 MG/1 ML INJ IV PRN ×3 (07:38→20:49)
[2019-08-26] MEDS ORDERED: NON-FORMULARY EACH (Ascorbic Acid [Vitamin C] 1,000 MG) PO SCH (10:00)
[2019-08-26] MEDS ORDERED: NON-FORMULARY EACH (Cholecalciferol (Vitamin D3) [Vitamin D3 50,000unit Cap] 50,000 UNIT) PO SCH (10:00)
[2019-08-26] MEDS: DOXYCYCLINE 100 MG CAPSULE PO SCH ×2 (11:05→21:05)
[2019-08-26] MEDS: ASCORBIC ACID 500 MG TAB PO SCH (11:05)
--- NOTE | 2019-08-26 12:13 | History and Physical Report ---
CHIEF COMPLAINT: Difficulty with ambulation. Other complaint includes generalized weakness and inability to raise the upper extremities. HISTORY OF PRESENTING ILLNESS: The patient is a 43-year-old female who had D and C done within the last 48 hours, and the patient stated that she was given anesthesia and does not remember how the anesthesia was given and then stated that she was given some fentanyl medication, and then after the D and C was done here in this hospital, she was discharged with Methergine and doxycycline and said that she took the Methergine the night after discharge and then started developing the difficulty with ambulation and said she was unable to move her upper extremities and her lower extremities and could not walk. Also, the patient complained about pain in the lower extremities and denies history of shortness of breath, but complained about abdominal pain and some chest pain. There was no history of fever or chills. No history of dizziness or change in mental status. Also, the patient denied history of any dysphagia or swelling in the mouth or skin rashes or itching and presented for evaluation. PAST MEDICAL HISTORY: Pertinent for arthritis, asthma. PAST SURGICAL HISTORY: Pertinent for myomectomy, D and C that was done recently. FAMILY HISTORY: Noncontributory. SOCIAL HISTORY: The patient does not smoke, does not drink alcohol and does not use illicit drug. MEDICATIONS: The patient is on albuterol sulfate 2 puffs by inhalation every 6 hours. Also, the patient is on vitamin C 1000 mg by mouth daily and vitamin D3 ____ units by mouth every week. The patient is also on doxycycline 100 mg by mouth every 12 hours, Motrin 800 mg by mouth every 8 hours as needed for pain, and the patient was started on methylergonovine 0.2 mg by mouth every 8 hours. ALLERGIES: There are no known drug allergies. REVIEW OF SYSTEMS: CONSTITUTIONAL: There is no fever, no chills, no diaphoresis. HEENT: There is no headache or sore throat. CARDIOVASCULAR SYSTEM: There is chest pain, but no orthopnea. RESPIRATORY SYSTEM: There is no shortness of breath or cough. GASTROINTESTINAL SYSTEM: There is no nausea, no vomiting. Abdominal pain is present. No diarrhea or constipation. NEUROLOGICAL SYSTEM: Generalized weakness noted. Inability to ambulate noted. Tingling sensation in the lower extremity noted and there is no change in mental status. MUSCULOSKELETAL SYSTEM: Pain in the lower extremities noted. There is no joint swelling. DERMATOLOGICAL SYSTEM: There is no skin rash or itching. GENITOURINARY SYSTEM: There is no dysuria, hematuria, or flank pain. Rest of system review is normal. PHYSICAL EXAMINATION: GENERAL: At the time of exam, the patient was found to be alert, oriented x 3 and not in acute distress. VITAL SIGNS: At the initial time of presentation showed temperature of 98.8 degrees Fahrenheit, pulse of 78, respirations 20, blood pressure 135/89, O2 sat of 100% on room air. HEENT: Showed pupils to be equal, round, reactive to light and accommodating. Extraocular muscles are intact. NECK: Supple with no JVD or carotid bruit. CARDIOVASCULAR SYSTEM: Showed normal first and second heart sounds with no gallops or murmurs. RESPIRATORY SYSTEM: Showed good air entry on both sides of the lungs with no abnormal breath sounds. GASTROINTESTINAL SYSTEM: Show abdomen to be full, soft, nontender with no organomegaly or rigidity. NEUROLOGIC: Shows decreased muscle strength in both lower and upper limbs with muscle strength of grade 1/6 on both lower extremities and grade 2/6 on both upper extremities. The sensory function is intact. MUSCULOSKELETAL SYSTEM: Showed no joint tenderness or swelling. DERMATOLOGICAL SYSTEM: Showed no skin rash. GENITOURINARY SYSTEM: Showed no costovertebral angle tenderness. PERTINENT LABORATORY AND IMAGING STUDIES: The patient had CT of the neck done that shows no acute abnormality. Also, the patient has CT of the chest with contrast done that shows no significant acute abnormality. There is mildly prominent and rather unusual probable node seen in the upper anterior mediastinum without evidence of adenopathy on this study according to the radiologist and the radiologist said a followup is suggested. There is also finding of intermediate moderate-size left adrenal mass with recommendation to follow up. The patient also has CT of the abdomen and pelvis with contrast done that shows no significant acute abnormality and there is reading of this mildly prominent and rather unusual probable node in the anterior mediastinum as shown in the CT of the chest. Lab results, the patient has CBC done with slightly elevated WBC of 11,700 with normal hemoglobin, normal hematocrit and CBC differential showing elevated lymphocyte count of 35.1% and elevated monocyte count of 10.6%. The patient's coagulation studies were unremarkable and chemistry was unremarkable. The patient's troponin level, 2 sets came back negative. test was negative and the patient's albumin level shows a slight decreased level of 3.1. DIAGNOSES: 1. Difficulty with ambulation or walking. 2. Weakness. 3. Allergy to methergine PLAN OF CARE: 1. The patient will be placed on observation in the medical/surgical louise. 2. The patient will have physical therapy consult this morning to help with ambulation and strengthening of muscles. 3. The patient will have Neurology consult with Dr. Jones because of inability to walk and tingling sensation in the lower extremity. 4. The patient will be on IV morphine 2 mg every 4 hours as needed for pain and IV Zofran 4 mg every 8 hours as needed for nausea and vomiting. 5. The patient will be on Tylenol 650 mg every 4 hours as needed for fever and headache, and the patient's diet will be regular diet. 6. The patient will be on her home medication as shown in the medication reconciliation section. 7. patient will have gynecological consult with Katalina Ortiz for evalution of the post D&C state. JOB# [id number] OCN/ASHER MTDD
--- NOTE | 2019-08-26 13:27 | Consultation ---
Medications and Allergies Allergies Allergy/AdvReac Type Severity Reaction Status Date / Time No Known Allergies Allergy Verified 08/20/19 16:43 Home Medications Medication Instructions Recorded Confirmed Last Taken Type Albuterol Sulfate [Proventil Hfa] 2 puff IH Q6H PRN 08/20/19 08/20/19 08/23/19 13:00 History Ascorbic Acid [Vitamin C] 1,000 mg PO DAILY 08/20/19 08/20/19 08/23/19 13:00 History Cholecalciferol (Vitamin D3) 50,000 unit PO QWEEK 08/20/19 08/20/19 08/23/19 13:00 History [Vitamin D3 50,000UNIT CAP] DOXYCYCLINE Hyclate [Vibramycin] 100 mg PO Q12HR #14 capsule 08/24/19 Unknown Rx Ibuprofen [Motrin] 800 mg PO Q8HR PRN #30 tablet 08/24/19 Unknown Rx Methylergonovine [Methergine] 0.2 mg PO Q8HR #6 tablet 08/24/19 Unknown Rx Active Meds: Active Medications Acetaminophen (Tylenol) 650 mg PO Q4H PRN PRN Reason: Fever >101 Albuterol (Proventil) 2.5 mg IH Q4HRT PRN PRN Reason: Dyspnea Ascorbic Acid (Vitamin C) 1,000 mg PO QDAY [facility] Last Admin: 08/26/19 11:05 Dose: 1,000 mg Documented by: Doxycycline Hyclate (Vibramycin) 100 mg PO Q12HR [facility] Last Admin: 08/26/19 11:05 Dose: 100 mg Documented by: Ergocalciferol (Vitamin D2) 50,000 unit PO [facility] Morphine Sulfate (Morphine) 2 mg IV Q4H PRN PRN Reason: Pain, Moderate (4-6) Last Admin: 08/26/19 07:38 Dose: 2 mg Documented by: Ondansetron HCl (Zofran) 4 mg IV Q8H PRN PRN Reason: Nausea And Vomiting Physical Examination - Vital Signs Vital Signs: Vital Signs Temp Resp BP 98.4 F 22 127/81 08/25/19 18:51 08/25/19 18:51 08/25/19 18:51 Results - Laboratory Findings CBC and BMP: 08/25/19 22:44 08/25/19 22:44 Abnormal Lab Findings: Abnormal Labs 08/25/19 08/25/19 08/26/19 22:44 22:44 00:16 WBC 11.7 H RDW 17.2 H Lymph % (Auto) 35.1 H [place] % (Auto) 10.6 H [place] # 1.2 H Chloride 109.0 H Creatinine 0.6 L Total Creatine Kinase 367 H Albumin 3.1 L Assessment and Plan 43 YR OLD FEMALE WITH HISTORY OF EXTREME OBESITY WHO HAD A D&C ON 09/24/2019 AND FOLLOWING WHICH SHE WAS GIVEN METHERGIN TO PREVENT UTERAN BLEED. SHE TOOK ONE DOSE ON 09/24/2019 AT 11.00AM AND DEVELOPED MUSCLE PAIN SOON AFTER. SHE CONTINUED TAKING METHERGIN AND AFTER TAKING THE THIRD PILL SHE DEVELOPED SIGNIFICANT DIFFUSE MUSCLE PAIN AND EPISODIC MUSCLE CRAMP. PATIENT STATED THAT SHE HAD NECK AND BACK DISCOMFORT PRIOR TO CURRENT SYMPTOMS AND NECK PAIN INTERMITTENTLY RADIATING TO THE RT HAND AND BACK PAIN INTERMITTENTLY RADIATING TO THE BACK OF RT BUTTOCK AND THIGH ALL THE WAY TO THE RT FOOT.SNEEZING AND COUGH MADE THE PAIN WORSE.WORK UP AFTER ADMISSION SHOWED MILDLY ELEVATED CPK AT 367, SHE DENOIES ASSOCIATED FEVER, CHILLS OR MALAISE. PHYSICAL EXAMINATION. IN MILD DISTRESS. SHE IS ALERT AWAKE AND ANSWERS QUESTIONS APPROPRIATELY. HEART-NORMAL RATE AND RHYTHM. CAROTIDS- BOTH PALPABLE,NO BRUIT. CRANIAL NERVES- ALL CRANIAL NERVES ARE WITH IN NORMAL LIMIT. MOTOR- WEAK RT DELTOID,RT BICEPS AND RT TRICEPS MUSCLES WEAK RT DORSIFLEXION,PLANTAR FLEXION AND RT EHL(extensor hallucis longus muscle) REFLEXES- DECREASED SENSATION TO PIN PRICK ON RIGHT C5.C6 AND C7 DERMATOMES DECREASED SENSATION TO PIN PRICK ON RT. L5 AND S1 DERMATOMES. SENSORY: DECREASED SENSATION TO PIN PRICK ON RT.C5,C6AND C7 DERMATOMES. DECREASED SENSATION TO PIN PRICK ON RT L5 AND S1 DERMATOMES. STRAIGHT LEG RAISING(SLR)- LIMITED TO ABOUT 30 DEGREES ON THE RIGHT SIDE. IMPRESSION .1. PATIENT SEEMS TO HAVE DIFFUSE MYALGIA SECONDARY TO SIDE EFFECT OF METHERGIN 2, SHE ALSO HAS EVIDENCE OF MULTIPLE CERVICAL RADICULOPATHIES INVOLVING RIGHT C5,C6,AND C7 RADICULOPATHIESAND ALSO LUMBO SACRAL RADICULOPATHIES INVOLVING RIGHT L5 AND S1 NERVE ROOTS. RECOMMEND. 1. PLEASE DISCONTINUE METHERGIN 2. START HER ON FLEXERIL 5MG PO TID. 3. MAGNESIUM 2 MG IV 4. DC CALCIUM SUPPLEMENT 5. MRI OF C SPINE AND LUMBO SACRAL SPINE 6. CHECK CPK IN AM IF NORMAL CAN BE GO HOME TOMORROW,TO GET OPEN MRI OUT PATIENT AND NEUROLOGY FOLLOW UP.
[2019-08-26] MEDS ORDERED: MAGNESIUM SULFATE 2 GM in SODIUM CHLORIDE 0.9% 50 ML IV ONE (14:00)
[2019-08-26] MEDS: CYCLOBENZAPRINE 10 MG TAB PO SCH ×2 (14:21→20:48)
--- NOTE | 2019-08-26 14:26 | Progress Note ---
Assessment and Plan Assessment and plan: 43 YR OLD FEMALE WITH HISTORY OF EXTREME OBESITY WHO HAD A D&C ON 09/24/2019 AND FOLLOWING WHICH SHE WAS GIVEN METHERGIN TO PREVENT UTERAN BLEED. SHE TOOK ONE DOSE ON 09/24/2019 AT 11.00AM AND DEVELOPED MUSCLE PAIN SOON AFTER. SHE CONTINUED TAKING METHERGIN AND AFTER TAKING THE THIRD PILL SHE DEVELOPED SIGNIFICANT DIFFUSE MUSCLE PAIN AND EPISODIC MUSCLE CRAMP. PATIENT STATED THAT SHE HAD NECK AND BACK DISCOMFORT PRIOR TO CURRENT SYMPTOMS AND NECK PAIN INTERMITTENTLY RADIATING TO THE RT HAND AND BACK PAIN INTERMITTENTLY RADIATING TO THE BACK OF RT BUTTOCK AND THIGH ALL THE WAY TO THE RT FOOT.SNEEZING AND COUGH MADE THE PAIN WORSE.WORK UP AFTER ADMISSION SHOWED MILDLY ELEVATED CPK AT 367, SHE DENOIES ASSOCIATED FEVER, CHILLS OR MALAISE. PHYSICAL EXAMINATION. IN MILD DISTRESS. SHE IS ALERT AWAKE AND ANSWERS QUESTIONS APPROPRIATELY. HEART-NORMAL RATE AND RHYTHM. CAROTIDS- BOTH PALPABLE,NO BRUIT. CRANIAL NERVES- ALL CRANIAL NERVES ARE WITH IN NORMAL LIMIT. MOTOR- WEAK RT DELTOID,RT BICEPS AND RT TRICEPS MUSCLES WEAK RT DORSIFLEXION,PLANTAR FLEXION AND RT EHL(extensor hallucis longus muscle) REFLEXES- DECREASED SENSATION TO PIN PRICK ON RIGHT C5.C6 AND C7 DERMATOMES DECREASED SENSATION TO PIN PRICK ON RT. L5 AND S1 DERMATOMES. SENSORY: DECREASED SENSATION TO PIN PRICK ON RT.C5,C6AND C7 DERMATOMES. DECREASED SENSATION TO PIN PRICK ON RT L5 AND S1 DERMATOMES. STRAIGHT LEG RAISING(SLR)- LIMITED TO ABOUT 30 DEGREES ON THE RIGHT SIDE. IMPRESSION .1. PATIENT SEEMS TO HAVE DIFFUSE MYALGIA SECONDARY TO SIDE EFFECT OF METHERGIN 2, SHE ALSO HAS EVIDENCE OF MULTIPLE CERVICAL RADICULOPATHIES INVOLVING RIGHT C5,C6,AND C7 RADICULOPATHIESAND ALSO LUMBO SACRAL RADICULOPATHIES INVOLVING RIGHT L5 AND S1 NERVE ROOTS. RECOMMEND. 1. PLEASE DISCONTINUE METHERGIN 2. START HER ON FLEXERIL 5MG PO TID. 3. MAGNESIUM 2 MG IV 4. DC CALCIUM SUPPLEMENT 5. MRI OF C SPINE AND LUMBO SACRAL SPINE 6. CHECK CPK IN AM IF NORMAL CAN BE GO HOME TOMORROW,TO GET OPEN MRI OUT PATIENT AND NEUROLOGY FOLLOW UP. Hospitalist Physical - Constitutional Vitals: Temp Pulse Resp BP Pulse Ox 97.5 F L 80 22 97/42 96 08/26/19 11:58 10/30/19 11:58 08/26/19 11:58 08/26/19 11:58 08/26/19 11:58 Results - Labs CBC & Chem 7: 08/25/19 22:44 08/25/19 22:44 Labs: Laboratory Last Values WBC 11.7 K/mm3 (4.5-11.0) H 08/25/19 22:44 RBC 3.75 M/mm3 (3.65-5.03) 08/25/19 22:44 Hgb 10.7 gm/dl (10.1-14.3) 08/25/19 22:44 Hct 33.3 % (30.3-42.9) 08/25/19 22:44 MCV 89 fl (79-97) 08/25/19 22:44 MCH 29 pg (28-32) 08/25/19 22:44 MCHC 32 % (30-34) 08/25/19 22:44 RDW 17.2 % (13.2-15.2) H 08/25/19 22:44 Plt Count 313 K/mm3 (140-440) 08/25/19 22:44 Lymph % (Auto) 35.1 % (13.4-35.0) H 08/25/19 22:44 [place] % (Auto) 10.6 % (0.0-7.3) H 08/25/19 22:44 Eos % (Auto) 1.0 % (0.0-4.3) 08/25/19 22:44 Baso % (Auto) 0.5 % (0.0-1.8) 08/25/19 22:44 Lymph # 4.1 K/mm3 (1.2-5.4) 08/25/19 22:44 [place] # 1.2 K/mm3 (0.0-0.8) H 08/25/19 22:44 Eos # 0.1 K/mm3 (0.0-0.4) 08/25/19 22:44 Baso # 0.1 K/mm3 (0.0-0.1) 08/25/19 22:44 Seg Neutrophils % 52.8 % (40.0-70.0) 08/25/19 22:44 Seg Neutrophils # 6.2 K/mm3 (1.8-7.7) 08/25/19 22:44 PT 12.9 Sec. (12.2-14.9) 08/25/19 22:44 INR 0.98 (0.87-1.13) 08/25/19 22:44 APTT 25.7 Sec. (24.2-36.6) 08/25/19 22:44 Sodium 140 mmol/L (137-145) 08/25/19 22:44 Potassium 4.3 mmol/L (3.6-5.0) 08/25/19 22:44 Chloride 109.0 mmol/L (98-107) H 08/25/19 22:44 Carbon Dioxide 23 mmol/L (22-30) 08/25/19 22:44 Anion Gap 12 mmol/L 08/25/19 22:44 BUN 13 mg/dL (7-17) 08/25/19 22:44 Creatinine 0.6 mg/dL (0.7-1.2) L 08/25/19 22:44 Estimated GFR > 60 ml/min 08/25/19 22:44 BUN/Creatinine Ratio 22 % 08/25/19 22:44 Glucose 86 mg/dL (65-100) 08/25/19 22:44 Calcium 8.7 mg/dL (8.4-10.2) 08/25/19 22:44 Magnesium 2.00 mg/dL (1.7-2.3) 08/25/19 22:44 Total Bilirubin < 0.20 mg/dL (0.1-1.2) 08/25/19 22:44 AST 29 units/L (5-40) 08/25/19 22:44 ALT 19 units/L (7-56) 08/25/19 22:44 Alkaline Phosphatase 99 units/L (35-129) 08/25/19 22:44 Total Creatine Kinase 367 units/L (30-135) H 08/26/19 00:16 Troponin T < 0.010 ng/mL (0.00-0.029) 08/25/19 22:44 Total Protein 6.8 g/dL (6.3-8.2) 08/25/19 22:44 Albumin 3.1 g/dL (3.9-5) L 08/25/19 22:44 Albumin/Globulin Ratio 0.8 % 08/25/19 22:44 HCG, Qual Negative (Negative) 08/25/19 22:44 Active Medications - Current Medications Current Medications: Generic Name Dose Route Start Last Admin Trade Name Freq PRN Reason Stop Dose Admin Acetaminophen 650 mg 08/26/19 06:27 Tylenol PO Q4H PRN Fever >101 Albuterol 2.5 mg 08/26/19 06:33 Proventil IH Q4HRT PRN Dyspnea Ascorbic Acid 1,000 mg 08/26/19 10:00 08/26/19 11:05 Vitamin C PO 1,000 mg QDAY TEDDY Administration Cyclobenzaprine HCl 5 mg 08/26/19 14:00 Flexeril PO TID TEDDY Doxycycline Hyclate 100 mg 08/26/19 10:00 08/26/19 11:05 Vibramycin PO 100 mg Q12HR TEDDY Administration Ergocalciferol 50,000 unit 08/30/19 10:00 Vitamin D2 PO Jimenez TEDDY Magnesium Sulfate 2 gm/ Sodium 54 mls @ 52 mls/hr 08/26/19 14:00 Chloride IV 08/26/19 15:02 ONCE ONE Morphine Sulfate 2 mg 08/26/19 06:16 08/26/19 07:38 Morphine IV 2 mg Q4H PRN Administration Pain, Moderate (4-6) Ondansetron HCl 4 mg 08/26/19 06:17 Zofran IV Q8H PRN Nausea And Vomiting
--- NOTE | 2019-08-26 17:28 | Event Note ---
Date: 08/26/19 Patient seen and examined, still with generalized body pain, discussed with Neurology as we both in the room at the same time. Will start recommended flexerel and discussed all side effect with the patient and she verbalized understanding. Inciting factor discontinued while awaiting BOX BLANK MACHINE FEEDER eval. Anticipate discharge in am Obtain PT EVAL
[2019-08-27] MEDS: MORPHINE 2 MG/1 ML INJ IV PRN (03:05)
[2019-08-27] MEDS: ASCORBIC ACID 500 MG TAB PO SCH ×2 (09:08→10:27)
[2019-08-27] MEDS: CYCLOBENZAPRINE 10 MG TAB PO SCH ×2 (09:08→16:05)
[2019-08-27] MEDS: DOXYCYCLINE 100 MG CAPSULE PO SCH (09:08)
--- NOTE | 2019-08-27 11:26 | Discharge Summary ---
Providers - Providers Date of Admission: 08/26/19 06:11 Attending physician: ALIX FLEMING MD 08/26/19 06:13 Physical Therapy Evaluation and Treat [CONS] Routine Comment: Reason For Exam: WEAKNESS AND INABILITY TO AMBULATE 08/26/19 06:15 Consult to Physician [CONS] Routine Comment: Consulting Provider: MICHAEL MONROE Physician Instructions: Reason For Exam: INABILITY TO WALK WITH [place] SENSATION OF LEGS 08/26/19 06:30 Consult to Physician [CONS] Routine Comment: Consulting Provider: RUTH ANN IBANEZ Physician Instructions: Reason For Exam: POST D&C WITH POSSIBLE ALLERGY TO METHERGIN Primary care physician: CORE INSPECTOR Hospitalization Reason for admission: reaction to medication Condition: Stable Hospital course: 43 YR OLD FEMALE WITH HISTORY OF EXTREME OBESITY WHO HAD A D&C ON 09/24/2019 AND FOLLOWING WHICH SHE WAS GIVEN METHERGIN TO PREVENT UTERAN BLEED. SHE TOOK ONE DOSE ON 09/24/2019 AT 11.00AM AND DEVELOPED MUSCLE PAIN SOON AFTER. SHE CONTINUED TAKING METHERGIN AND AFTER TAKING THE THIRD PILL SHE DEVELOPED SIGNIFICANT DIFFUSE MUSCLE PAIN AND EPISODIC MUSCLE CRAMP. PATIENT STATED THAT SHE HAD NECK AND BACK DISCOMFORT PRIOR TO CURRENT SYMPTOMS AND NECK PAIN INTERMITTENTLY RADIATING TO THE RT HAND AND BACK PAIN INTERMITTENTLY RADIATING TO THE BACK OF RT BUTTOCK AND THIGH ALL THE WAY TO THE RT FOOT.SNEEZING AND COUGH MADE THE PAIN WORSE.WORK UP AFTER ADMISSION SHOWED MILDLY ELEVATED CPK AT 367, SHE DENOIES ASSOCIATED FEVER, CHILLS OR MALAISE. * Patient is doing better today following given 2gm of magnesium and flexril * Advised on Flexril side effect * Neurology recommendation discussed with the patient * No driving while on Flexril IMPRESSION .1. PATIENT SEEMS TO HAVE DIFFUSE MYALGIA SECONDARY TO SIDE EFFECT OF METHERGIN 2, SHE ALSO HAS EVIDENCE OF MULTIPLE CERVICAL RADICULOPATHIES INVOLVING RIGHT C5,C6,AND C7 RADICULOPATHIESAND ALSO LUMBO SACRAL RADICULOPATHIES INVOLVING RIGHT L5 AND S1 NERVE ROOTS. RECOMMEND. 1. PLEASE DISCONTINUE METHERGIN 2. START HER ON FLEXERIL 5MG PO TID. 3. MAGNESIUM 2 MG IV 4. DC CALCIUM SUPPLEMENT 5. MRI OF C SPINE AND LUMBO SACRAL SPINE 6. CHECK CPK IN AM IF NORMAL CAN BE GO HOME TOMORROW,TO GET OPEN MRI OUT PATIENT AND NEUROLOGY FOLLOW UP. Discharge Diagnosis 1. DIFFUSE MYALGIA INDUCED BY METHERGIN SHOWING IMPROVEMENT ON DISCONTINUING METHERGIN 2. MORBID OBESITY 3. ATAXIC GAIT 4. S/P D/C Disposition: DC-01 TO HOME OR SELFCARE Time spent for discharge: 35 mins Core Measure Documentation - Palliative Care Palliative Care/ Comfort Measures: Not Applicable - Core Measures Any of the following diagnoses?: none Exam - Constitutional Vitals: Temp Pulse Resp BP Pulse Ox 98.1 F 74 19 112/56 96 08/27/19 05:46 08/27/19 05:46 08/27/19 05:46 08/27/19 05:46 08/27/19 05:46 General appearance: Present: no acute distress, obese (morbid) - EENT Eyes: Present: PERRL, EOM intact - Neck Neck: Present: supple, normal ROM - Respiratory Respiratory effort: normal Respiratory: bilateral: CTA - Cardiovascular Rhythm: regular Heart Sounds: Present: S1 & S2. Absent: systolic murmur, diastolic murmur - Extremities Extremities: pulses intact, pulses symmetrical, No edema Peripheral Pulses: within normal limits - Abdominal General gastrointestinal: Present: soft, non-tender, non-distended, normal bowel sounds - Integumentary Integumentary: Present: clear, warm, dry - Musculoskeletal Musculoskeletal: other (MOTOR- WEAK RT DELTOID,RT BICEPS AND RT TRICEPS MUSCLES) - Psychiatric Psychiatric: appropriate mood/affect, intact judgment & insight - Neurologic Neurologic: CNII-XII intact, moves all extremities (although uses walker), other (decreased reflex and dermatone neuropathy) - Allied Health Allied health notes reviewed: nursing Plan Activity: no driving until cleared by PCP, fall precautions Diet: low cholesterol Special Instructions: record daily BP diary, record blood sugar diary, physical therapy, occupational therapy Additional Instructions: Discuss with PCP as we are recommneded an MRI of lumber spine. Follow up with: PRIMARY CARE, [Primary Care Provider] - 3-5 Days PHIL CHEEMA MD [Staff Physician] - 7 Days JEANNETTE MARRERO MD [Staff Physician] - 7 Days Prescriptions: Cyclobenzaprine [Flexeril 10 MG TAB] 5 mg PO TID PRN #30 tablet PRN Reason: Spasms traMADol [Ultram] 50 mg PO Q6HR PRN #14 tablet PRN Reason: Pain
--- NOTE | 2019-08-27 11:40 | Progress Note ---
Assessment and Plan MS. BRANNON LOOK VERY GOOD TODAY. NO COMPLAIN OF CONSTANT PAIN EVEN WITH SLIGHT MOVEMENT SHE DID YESTERDAY.IT SEEMS IV 2MG MAGNESIUM AND FLEXERIL HAS WORKED. SHE WAS ABLE TO WALK LAST NIGHT. PHYSICAL EXAMINATION ALERT AND APPROPRIATE. HAS INSIGHT INTO HER CONDITION AND ANSWERS QUESTIONS APPROPRIATELY. HEART-NORMAL RATE AND RHYTHM, CAROTIDS- BOTH PALPABLE, CRANIAL NERVES- ALL WITHIN NORMAL LIMIT. MOTOR- MOVES ALL FOUR EXTREMITIES WITHOUT AND DIFFICULTY AND WITHOUT PAIN. IMPRESSION. 1. DIFFUSE MYALGIA INDUCED BY METHERGIN SHOWING IMPROVEMENT ON DISCONTINUING METHERGIN RECOMMEND. 1.CONTINUE FLEXERIL 2. INITIATE PHYSICAL THERAPY 3. CHECK CPK,IF RETURNS TO NORMAL, SHE CAN BE DISCHARGED AND GET OPEN MRI FOR CSPINE AND LUMBAR SPINE Objective - Vital Sign Vital Signs - 12hr 08/27/19 08/27/19 02:53 05:46 Temperature 98.1 F 98.1 F Pulse Rate 79 74 Respiratory 19 19 Rate Blood Pressure 121/69 112/56 O2 Sat by Pulse 94 96 Oximetry - Laboratory Findings CBC and BMP: 08/25/19 22:44 08/25/19 22:44 Abnormal Lab Findings: Abnormal Labs 08/25/19 08/25/19 08/26/19 22:44 22:44 00:16 WBC 11.7 H RDW 17.2 H Lymph % (Auto) 35.1 H [place] % (Auto) 10.6 H [place] # 1.2 H Chloride 109.0 H Creatinine 0.6 L Total Creatine Kinase 367 H Albumin 3.1 L
[2019-08-27 13:17] VITALS: BP 123/69
[2019-08-30] MEDS ORDERED: ERGOCALCIFEROL (VIT D2) 50,000 UNIT CAP PO SCH (10:00)
[2019-08-31 14:06] LABS: Vitamin D, 25-OH, D2 33 ng/mL
== END 2019-08-27 17:20 | disposition home or self-care (01) ==
LOC: ED 18:46 → 3A 08-26 06:11
PROVIDERS: ADMIT Internal Medicine; ATTEND Internal Medicine
DX: R53.1 Weakness (principal); M79.7 Fibromyalgia; R27.0 Ataxia, unspecified; E66.01 Morbid (severe) obesity due to excess calories; M19.90 Unspecified osteoarthritis, unspecified site; J45.909 Unspecified asthma, uncomplicated; Z79.899 Other long term (current) drug therapy; Z88.8 Allergy status to other drugs, medicaments and biological substances; Z68.43 Body mass index [BMI] 50.0-59.9, adult
CPT/HCPCS: 36415; 70491; 71045; 71260; 74177; 80053; 82306; 82550; 83735; 84484; 84703; 85025; 85610; 85730; 87116; 93005; 93010; 96365; 96375; 96376; 97116; 97161; 99284; G0378; J2270; J2405; J3010; J3475; J7030; Q9967; 96361